=== PATIENT | male | born 1935 | race Caucasian/White ===

== ENCOUNTER 2018-10-05 13:14 | Outpatient (CLI) | payer BC, OTHER ==
[~2018-10-05 13:14] MED LIST: HYDROXYUREA
== END 2018-10-05 23:59 | disposition home or self-care (01) ==
LOC: RAD 13:14
DX: I82.432 Acute embolism and thrombosis of left popliteal vein (principal); I82.442 Acute embolism and thrombosis of left tibial vein; M71.22 Synovial cyst of popliteal space [Baker], left knee